=== PATIENT | female | born 1990 | race Caucasian/White ===

== ENCOUNTER 2022-02-08 11:18 | Outpatient (CLI) | payer OTHER, SELFPAY ==
--- NOTE | 2022-02-08 11:15 | US_ITS ---
WS: [id number] RENAL ULTRASOUND HISTORY: Kidney Stone COMPARISON: None available. TECHNIQUE: 2-D and color Doppler imaging of the kidney submitted. Right kidney: 11.7 cm x 5.7 cm x 7.3 cm. Normal size kidney. Moderate hydronephrosis. Renal pelvis and the proximal ureter are dilated up to 2 .4 cm. No calcifications remain within the renal pelvis. Left kidney: 12.4 cm x 4.8 cm x 4.9 cm. Normal echogenicity with no hydronephrosis or mass. Aorta: Normal. Urinary Bladder: Normal distention. US/US renal BI* [id number] IMPRESSION: 1. Moderate RIGHT hydronephrosis and proximal hydroureter. May be due to a gra vid uterus or obstructing calcification. 2. Negative LEFT kidney. 3. Negative urinary bladder.
== END 2022-02-08 11:19 | disposition home or self-care (01) ==
LOC: RAD 11:19
PROVIDERS: PCP Family Medicine; Visit Provider Urology
DX: Z87.442 Personal history of urinary calculi (principal); N13.30 Unspecified hydronephrosis; N13.4 Hydroureter; R82.81 Pyuria
CPT/HCPCS: 76770; 81003; 87077; 87086; 87186

== ENCOUNTER 2022-02-09 07:00 | Inpatient (IN) | payer OTHER, SELFPAY ==
[2022-02-08] VITALS (9 sets, daily range): BP systolic 111–127; BP diastolic 56–72; PULSE 120–133; RESP 20; TEMP 36.6–37.8; BMI 31.9
--- NOTE | 2022-02-08 14:35 | MR_ITS ---
WS: [id number] MRI ABDOMEN without CONTRAST. COMPARISON: 02/08/2022 renal ultrasound Multiplanar, multisequence imaging is performed without contrast. Moderate RIGHT hydronephrosis is identified. The RIGHT ureter is dilated. Ureter is mildly dilated an d fluid-filled throughout its course but tapers distally. There is mild change in caliber at the pelv ic brim. No obstructing calcification is identified. The distal ureter is distended with urine but no t significantly enlarged. No definite filling defect is identified. No significant perinephric strand ing around the ureter. There is a small amount of fluid around the RIGHT kidney. The LEFT ureter is not dilated. Very mild fluid prominence in the LEFT pelvis but there is no overt o bstruction. No hydronephrosis noted on the recent ultrasound. Gravid uterus. MR/MR abdomen wo con [id number] IMPRESSION: 1. Moderate RIGHT hydroureteronephrosis. 2. RIGHT ureter is fluid-filled but tapers distally. No ureteral stone is iden tified.
[2022-02-08 15:26] LABS: Basophils % 0.2 %; Eosinophils % 0.1 %; Hematocrit 36.5 % (37.0-47.0); Hemoglobin 12.2 g/dL (11.5-15.3); Lymphocytes # 0.8 10^3/uL (0.8-4.8); Lymphocytes % 4.7 %; Mean Corpuscular HGB Conc 33.4 g/dL (30.0-36.0); Mean Corpuscular Hemoglobin 31.5 pg (28.0-34.0); Mean Corpuscular Volume 94.3 fl (81-99); Mean Platelet Volume 11.7 fL (7.4-10.4); Monocytes # 0.7 10^3/uL (0.2-0.9); Monocytes % 4.3 %; Neutrophils # 14.82 10^3/uL (1.8-7.7); Nucleated Red Blood Cells % 0 %; Platelet Count 227 10^3/cmm (130-400); Red Blood Count 3.87 10^6/uL (4.1-5.3); Red Cell Distribution Width 13.5 % (12.1-15.1); White Blood Count 16.5 10^3/uL (4.0-10.0)
[2022-02-08 15:38] LABS: Alanine Aminotransferase 8 U/L (0-33); Albumin Level 3.4 g/dL (3.5-5.2); Alkaline Phosphatase 78 U/L (35-105); Anion Gap 16.6 (5-19); Aspartate Amino Transferase 12 U/L (0-32); Blood Urea Nitrogen 8 mg/dL (6-20); Calcium 8.9 mg/dL (8.5-10.5); Carbon Dioxide 20 mmol/L (22-29); Chloride 104 mmol/L (98-107); Globulin 3.1 g/dL (1.3-4.6); Glomerular Filtration Rate 117.4 mL/min (90-130); Glucose 106 mg/dL (65-115); Osmolality Calculated 283 mOsm/kg (285-295); Potassium 3.6 mmol/L (3.5-5.1); Sodium 137 mmol/L (136-145); Total Bilirubin 0.3 mg/dL (0.15-1.2); Total Protein 6.5 g/dL (6.6-8.7)
[2022-02-08] MEDS: dextrose 5%-ns + KCl 20 20 MEQ/1,000 ML BAG 150 MEQ IV (16:24)
[2022-02-08] MEDS: cefTRIAXone 1,000 MG in sodium chloride 0.9% (plus) 50 ML 100 MG IV (16:25)
[2022-02-08] MEDS: acetaminophen 500 mg Tablet PO ×2 (16:40→19:08)
--- NOTE | 2022-02-08 17:50 | PM.SDS ---
Short Stay Summary Providers Date of Admit/Discharge: 02/10/22 Attending Provider: Supa Linton MD Primary Care Provider: Supa Linton MD Chief Complaint: Right flank pain HPI History of Present Illness Selam Ralph is a 31 year old 2 para 1-0-0-1 female at 23 weeks estimated gestational age presenting with right flank pain has been occurring for the last 24 hours. She was evaluated by Dr. Celestin and found to have pyuria and right flank tenderness. An ultrasound demonstrated right hydronephrosis. She was having chills and Dr. Celestin contacted me to consider admission. Her has otherwise been unremarkable. Her labs been within normal limits. There have been no concerns. Review of Systems General: Reports: 10 or more systems reviewed and unremarkable except in HPI and below Const: Reports: chills and fatigue; Denies: fever(s) Eyes: Denies: change in vision Card: Denies: chest pain Musc: Reports: back pain and other (Generalized body aches) Ulises/Lymph: Denies: easy bruising Home Meds/Allergies Home Medications and Allergies Home Medications Medication Instructions Recorded Confirmed Type prenat.vits,trell,bde-pvlk-wlrct 1 tab PO DAILY 02/08/22 02/08/22 History Allergies Allergy/AdvReac Type Severity Reaction Status Date / Time cefaclor [From [facility]] Allergy Mild Unknown Verified 02/08/22 13:10 PFSH Acute PFSH: Surgical History (Updated 02/10/22 @ 05:47 by Arya Celestin MD) History of tonsillectomy and adenoidectomy History of wisdom tooth extraction Family History Other Hypertension Social History Smoking and tobacco status: never smoked Female Reproductive History: : 2 Vitals/I&O/Wt Last Vital Signs Temp 97.9 F 02/08/22 16:15 Pulse 125 H 02/08/22 17:13 Resp 20 H 02/08/22 16:15 BP 114/64 02/08/22 17:13 Weight last 48 hrs Weight 198 lb Physical Exam Const: COMMON NORMALS: patient oriented x3 and alert HENMT: COMMON NORMALS: moist oral mucous membranes HEAD & SCALP: normal to inspection Chest: COMMONS NORMALS: normal inspection of the chest Resp: COMMON NORMALS: clear to auscultation bilaterally AUSCULTATION: clear to auscultation bilaterally Cardio: COMMON NORMALS: regular rate and regular rhythm RATE: regular rate RHYTHM: regular rhythm GI: INSPECTION: Yes normal to inspection and Yes other (Gravid) Back/Pelvis: OTHER: Right CVA tenderness. Extremity: COMMON NORMALS: normal to inspection GENERAL: Yes edema (Trace) Neuro: COMMON NORMALS: patient oriented x3, moves all extremities and no sensory deficits noted SENSORIUM/ORIENTATION: Yes alert Psych: COMMON NORMALS: mental status grossly normal Skin: COMMON NORMALS: no rashes or lesions noted GENERAL SKIN EXAM: no rashes or lesions noted SSS Data Data Completed and Pending: Completed Studies During Hospitalization Category Date Time Status MR abdomen wo con [id number] Routine MRI 02/08/22 14:35 Completed Diagnoses at Discharge Discharge Diagnosis (1) Pyuria: Details from hospital stay: Patient has been placed on Rocephin and IV fluids. I anticipate we will continue with Rocephin unless we see her spiking fevers again today overseer condition worsening. In which case I may proceed to amp and gent. Otherwise we will wait for the culture to determine our next choice of antibiotics. Initially I thought she would have a short stay in the hospital, but looks like she will be changing to a full admission. Status: Acute (2) Hydronephrosis, right: Details from hospital stay: We appreciate Dr. Celestin's care. Depending on how she does, she may require a stent. Status: Acute (3) Flank pain: Status: Acute Discharge Plan Discharge Condition: Stable Prescriptions: No Action prenat.vits,trell,[id number] Tablet 1 tab PO DAILY Attestations Medical Necessity Statement*: Due to the patient's diagnosis of hydronephrosis, cystitis, and , we will have to monitor her carefully. I anticipate she will require a 1-2 night stay in the hospital depending on how she responds to treatment Time Spent in Patient Care*: greater than 30 min Quality Metrics Clinical Quality Measures: [ No reported AMI, CVA or VTE this stay] Coding Level of Care Code Acute Dog Pound Attendant for [facility] Fwd Exam Comprehensive Diagnoses Pyuria R82.81 Hydronephrosis, right N13.30 Flank pain R10.9 A&P Assessment and plan (1) Pyuria: Status: Acute (2) Hydronephrosis, right: Status: Acute (3) Flank pain: Status: Acute
--- NOTE | 2022-02-08 19:15 | PM.MISC ---
Miscellaneous Note Purpose of Documentation: Urology follow-up: SEE CONSULT NOTE WHICH WAS MY CLINIC NOTE FROM EARLIER TODAY WHICH LED TO THE DIRECT ADMISSION TODAY Pain better controlled tonight. No evidence of septic progression MRI confirmed significant right hydronephrosis and hydroureter down to the pelvic vessel crossing. No stone was identified. Findings more consistent with hydronephrosis of . Recommendations: 1. In the absence of infectious progression would continue palliative care primarily with pain control and antibiotic 2. If there is either progression of infectious concerns or refractory pain that cannot be adequately controlled conservatively would recommend stent placement I reviewed all the above with the patient and her
[2022-02-09] VITALS (20 sets, daily range): BP systolic 94–116; BP diastolic 51–68; PULSE 103–171; RESP 16–20; TEMP 36.6–37.7; O2SAT 96–98
[2022-02-09] MEDS: acetaminophen 500 mg Tablet PO ×5 (00:04→23:34)
[2022-02-09] MEDS: dextrose 5%-ns + KCl 20 20 MEQ/1,000 ML BAG 150 MEQ IV ×4 (00:05→22:50)
--- NOTE | 2022-02-09 02:12 | PC.NURSE ---
RN at bedside plus ox states HR in 170s. This RN and [id number] palpated radial plus and noted it to be 120s.
[2022-02-09] MEDS: cefTRIAXone 1,000 MG in sodium chloride 0.9% (plus) 50 ML 100 MG IV (05:09)
[2022-02-09 05:27] LABS: Basophils % 0.2 %; Eosinophils % 0.1 %; Hemoglobin 10.6 g/dL (11.5-15.3); Lymphocytes # 1.1 10^3/uL (0.8-4.8); Mean Corpuscular HGB Conc 33.1 g/dL (30.0-36.0); Mean Corpuscular Hemoglobin 31.4 pg (28.0-34.0); Mean Corpuscular Volume 94.7 fl (81-99); Mean Platelet Volume 11.3 fL (7.4-10.4); Monocytes # 1.2 10^3/uL (0.2-0.9); Monocytes % 6.6 %; Neutrophils # 15.93 10^3/uL (1.8-7.7); Neutrophils % 86.2 %; Nucleated Red Blood Cells % 0 %; Platelet Count 202 10^3/cmm (130-400); Red Blood Count 3.38 10^6/uL (4.1-5.3); Red Cell Distribution Width 13.3 % (12.1-15.1); White Blood Count 18.5 10^3/uL (4.0-10.0)
--- NOTE | 2022-02-09 06:18 | P.PN_ITS ---
Subjective Subjective: Urology follow-up White count was elevated at 16.5 on admission yesterday. 18.5 this morning. Tachycardic. T-max was 100.1 at 8 PM last night. Afebrile this morning PM follow up: Not feeling great. Some chills but no spike in temps. No contractions. No dysuria. Cultures pending. Reviewed stent tomorrow if not seeing a trend of improvement. Good conversation. Medications: Reviewed: Yes Vitals/I&O/Wt Last Vital Signs Temp 98.2 F 02/09/22 02:26 Pulse 104 H 02/09/22 02:22 Resp 20 H 02/08/22 16:15 BP 99/55 02/09/22 02:02 Pulse Ox 97 02/09/22 02:22 O2 Del Method 02/08/22 20:01 02/08/22 02/08/22 02/09/22 14:59 22:59 06:59 Intake Total 1000 / 1000 Balance 1000 / 1000 Weight last 48 hrs Weight 198 lb Physical Exam Narrative: alert, oriented appropriate NAD No labored respiration Data : 02/10/22 05:08 02/08/22 14:45 A&P Assessment and plan (1) Hydronephrosis, right: No stone seen on MRI (2) Flank pain: (3) Pyuria: (4) Cystitis: initially asymptomatic Attestations Medical Necessity Statement*: Pain control, close monitoring with potentially high risk situation with UTI and obstruction Coding Level of Care Code Acute Prototype Model Maker for [facility] Diagnoses Hydronephrosis, right N13.30 Flank pain R10.9 Pyuria R82.81 Cystitis N30.90 Time Spent (min) 30
--- NOTE | 2022-02-09 22:55 | PC.NURSE ---
Discussed with patient new orders from Dr. Linton for Hydrocodone 5-325 q4h PRN for pain. Medication offered to patient, patient states she can wait for Tylenol at this time.
[2022-02-10] VITALS (10 sets, daily range): BP systolic 89–104; BP diastolic 51–63; PULSE 99–111; TEMP 36.7–37.1; O2SAT 97
[2022-02-10] MEDS: cefTRIAXone 1,000 MG in sodium chloride 0.9% (plus) 50 ML 100 MG IV (05:05)
[2022-02-10 05:29] LABS: Basophils % 0.1 %; Eosinophils # 0.1 10^3/uL (0.0-0.8); Eosinophils % 0.4 %; Hematocrit 30.8 % (37.0-47.0); Lymphocytes # 1.3 10^3/uL (0.8-4.8); Lymphocytes % 9.2 %; Mean Corpuscular HGB Conc 32.5 g/dL (30.0-36.0); Mean Corpuscular Hemoglobin 31.3 pg (28.0-34.0); Mean Corpuscular Volume 96.3 fl (81-99); Mean Platelet Volume 11.3 fL (7.4-10.4); Monocytes # 1.1 10^3/uL (0.2-0.9); Monocytes % 7.8 %; Neutrophils # 11.25 10^3/uL (1.8-7.7); Neutrophils % 81.8 %; Nucleated Red Blood Cells % 0 %; Platelet Count 190 10^3/cmm (130-400); Red Cell Distribution Width 13.5 % (12.1-15.1); White Blood Count 13.8 10^3/uL (4.0-10.0)
--- NOTE | 2022-02-10 06:00 | PM.PN ---
Subjective Subjective: Urology follow-up: Feels much better this morning. Still having intermittent renal colicky type pains but manageable. Less of the malaise feeling that she had with fever spikes previously. Overall more optimistic. No baby issues. Cultures growing gram-negative bacteria. Sensitivities pending Good discussion regarding stent versus no stent. Based on the improvement in symptoms we have elected to hold on stent for now and hopefully just base that decision on pain and not infectious concerns. More optimistic. Vitals/I&O/Wt Last Vital Signs Temp 97.8 F 02/11/22 05:05 Pulse 85 02/11/22 05:04 Resp 16 02/09/22 22:27 BP 90/51 02/11/22 05:04 Pulse Ox 95 02/11/22 05:02 O2 Del Method 02/09/22 08:00 02/10/22 02/10/22 02/11/22 14:59 22:59 06:59 Intake Total 1050 / 1050 1000 / 2050 1000 / 3050 Balance 1050 / 1050 1000 / 2050 1000 / 3050 Physical Exam Narrative: alert, oriented appropriate Looks like she feels better. NAD No labored respiration Data : 02/10/22 05:08 02/08/22 14:45 A&P Assessment and plan (1) Hydronephrosis, right: No stone seen on MRI (2) Flank pain: Persistent but overall not as bad and seems to be tolerable. (3) Pyuria: (4) Cystitis: initially asymptomatic. Later developed low-grade temperatures, chills. Clinically improved over yesterday. Cultures pending. Plan 1. Elected to continue antibiotic therapy and pain medication rather than stenting given the clinical improvement today. 2. Continue inpatient care with IV antibiotics. Adjust per cultures. If continues this clinical improvement from an infectious perspective we will base a decision on stenting primarily on pain. At this point she thinks that the pain as an independent variable is manageable and she would like to forego a stent at this point anyway. Attestations Medical Necessity Statement*: IV antibiotics. See above Coding Level of Care Code Acute Cartridge Loader for [facility] Diagnoses Hydronephrosis, right N13.30 Flank pain R10.9 Pyuria R82.81 Cystitis N30.90
[2022-02-10] MEDS: dextrose 5%-ns + KCl 20 20 MEQ/1,000 ML BAG 150 MEQ IV ×3 (06:18→20:53)
[2022-02-10 06:43] LABS: Bilirubin Urine Neg (Negative); Blood Urine 2+ (Negative); Glucose Urine UA Norm (Normal); Ketones Urine Negative (Negative); Leukocyte Esterase Urine Negative (Negative); Nitrate Urine Negative (Negative); Protein Urine Neg (Negative); Urine Appearance Clear (CLEAR); Urine Color Yellow (Yellow); Urobilinogen Urine Norm (Negative); pH Urine 6 (5-7)
[2022-02-10 06:48] LABS: Add Urine Culture? No; Bacteria Urine 3+ /hpf; Squamous Epithelial Cell Urine 15-25 /hpf (0-5)
--- NOTE | 2022-02-10 07:28 | P.PN_ITS ---
Subjective Subjective: The patient has made some progress overall. Her pulse is improving, her temp was to 99.5 last night while on Tylenol. She continued to have significant right flank pain last night. She rated 8 out of 10. That is improved this morning. Her urine has appeared clear. Whenever her Tylenol wears off she says she just generally feels bad. Vitals/I&O/Wt Last Vital Signs Temp 98.0 F 02/10/22 05:07 Pulse 101 H 02/10/22 05:08 Resp 16 02/09/22 22:27 BP 98/56 02/10/22 05:08 Pulse Ox 98 02/09/22 22:17 O2 Del Method 02/09/22 08:00 02/09/22 02/10/22 02/10/22 22:59 06:59 14:59 Intake Total 1999 / 1999 1000 / 3000 Balance 1999 1000 / 3000 Weight last 48 hrs Weight 198 lb Physical Exam Narrative: The patient is alert. She appears comfortable. Her heart has a regular rate and rhythm with no murmurs appreciated. Lungs are clear to auscultation bilaterally. She continues to have right flank pain. Data : 02/10/22 05:08 02/08/22 14:45 A&P Assessment and plan (1) Flank pain: (2) Hydronephrosis, right: I appreciate the conscientious care of Dr. Celestin. I will confer with him about the risk/benefits of a stent placement. She appears to have made some progress clinically, but it is marginal. (3) Cystitis: Continue Rocephin until urine cultures are back. We will give it antibiotics if needed after cultures have returned. Hopefully today Attestations Medical Necessity Statement*: The patient has not improved as quickly as I had hoped. She continues to have significant symptoms when the Tylenol wears off. Her urine still demonstrates 3+ bacteria. I will consult with the Dr. Celestin but it is likely she will need to be in the hospital for another night. Coding Level of Care Code Acute Armorer Technician for [facility] Diagnoses Flank pain R10.9 Hydronephrosis, right N13.30 Cystitis N30.90
[2022-02-11 03:28] VITALS: TEMP 36.4
[2022-02-11] MEDS: dextrose 5%-ns + KCl 20 20 MEQ/1,000 ML BAG 150 MEQ IV (03:57)
[2022-02-11] MEDS: cefTRIAXone 1,000 MG in sodium chloride 0.9% (plus) 50 ML 50 MG IV (05:00)
[2022-02-11 05:02] VITALS: PULSE 100; O2SAT 95
[2022-02-11 05:04] VITALS: BP 90/51; PULSE 85
[2022-02-11 05:05] VITALS: TEMP 36.6
--- NOTE | 2022-02-11 05:40 | P.PN_ITS ---
Subjective Subjective: Urology follow-up: No temperature spikes over the last 24 hours. Vitals/I&O/Wt Last Vital Signs Temp 97.8 F 02/11/22 05:05 Pulse 85 02/11/22 05:04 Resp 16 02/09/22 22:27 BP 90/51 02/11/22 05:04 Pulse Ox 95 02/11/22 05:02 O2 Del Method 02/09/22 08:00 02/10/22 02/10/22 02/11/22 14:59 22:59 06:59 Intake Total 1050 / 1050 1000 / 2050 1000 / 3050 Balance 1050 / 1050 1000 / 2050 1000 / 3050 Data : 02/10/22 05:08 02/08/22 14:45 Coding Level of Care Code Acute Research Anthropologist for [facility]
--- NOTE | 2022-02-11 06:40 | PM.OBGYDC ---
Discharge Providers SEWING MACHINE ASSEMBLER Date of Admission: 02/09/22 07:00 Date of Discharge: 02/11/22 Attending Provider at Admission: Supa Linton MD Attending Provider at Discharge: Supa Linton MD Primary Care Provider: Supa Linton MD Diagnoses at Discharge Discharge Diagnosis (1) Hydronephrosis, right: Status: Acute (2) Flank pain: Status: Acute (3) Pyuria: Status: Acute (4) Cystitis: Status: Acute Reason for Visit Reason for Visit: Right flank pain Hospital Course Hospital Course The patient presented to the hospital due to hydronephrosis and a urinary tract infection. She was placed on Rocephin and IV fluids. She had chills, and constitutional ill bed. She had multiple mild elevations of her temperature despite being on Tylenol 22/11 for her first few days of hospital stay. We are considering having a stent placed, but her condition gradually improved. Her last 24 hours, there were no fevers. She did not require Tylenol. She was eating and drinking well without difficulty. Physical Exam Narrative: The patient is alert. She appears comfortable. Her heart has a regular rate and rhythm with no murmurs appreciated. Lungs are clear to auscultation bilaterally. She continues to have tenderness in the right CVA area and in the right mid axillary line just below her ribs Her fundus is at the umbilicus. Discharge Data Studies Completed and Pending Completed Studies During Hospitalization Category Date Time Status MR abdomen wo con [id number] Routine MRI 02/08/22 14:35 Completed Radiology Impressions Abdomen MRI 02/08/22 14:35 IMPRESSION: 1. Moderate RIGHT hydroureteronephrosis. 2. RIGHT ureter is fluid-filled but tapers distally. No ureteral stone is identified. Laboratory Results WBC 13.8 10^3/uL (4.0-10.0) H 02/10/22 05:08 RBC 3.20 10^6/uL (4.1-5.3) L 02/10/22 05:08 Hgb 10.0 g/dL (11.5-15.3) L 02/10/22 05:08 Hct 30.8 % (37.0-47.0) L 02/10/22 05:08 MCV 96.3 fl (81-99) 02/10/22 05:08 MCH 31.3 pg (28.0-34.0) 02/10/22 05:08 MCHC 32.5 g/dL (30.0-36.0) 02/10/22 05:08 RDW 13.5 % (12.1-15.1) 02/10/22 05:08 Plt Count 190 10^3/cmm (130-400) 02/10/22 05:08 MPV 11.3 fL (7.4-10.4) H 02/10/22 05:08 Neut % (Auto) 81.8 % 02/10/22 05:08 Lymph % (Auto) 9.2 % 02/10/22 05:08 [place] % (Auto) 7.8 % 02/10/22 05:08 Eos % (Auto) 0.4 % 02/10/22 05:08 Baso % (Auto) 0.1 % 02/10/22 05:08 Neut # (Auto) 11.25 10^3/uL (1.8-7.7) H 02/10/22 05:08 Lymph # (Auto) 1.3 10^3/uL (0.8-4.8) 02/10/22 05:08 [place] # (Auto) 1.1 10^3/uL (0.2-0.9) H 02/10/22 05:08 Eos # (Auto) 0.1 10^3/uL (0.0-0.8) 02/10/22 05:08 Baso # (Auto) 0.0 10^3/uL (0.0-0.1) 02/10/22 05:08 Nucleated RBC % (auto) 0 % 02/10/22 05:08 Nucleated RBCs # 0.0 /100WBC 02/10/22 05:08 Sodium 137 mmol/L (136-145) 02/08/22 14:45 Potassium 3.6 mmol/L (3.5-5.1) 02/08/22 14:45 Chloride 104 mmol/L (98-107) 02/08/22 14:45 Carbon Dioxide 20 mmol/L (22-29) L 02/08/22 14:45 Anion Gap 16.6 (5-19) 02/08/22 14:45 BUN 8 mg/dL (6-20) 02/08/22 14:45 Creatinine 0.6 mg/dL (0.5-0.9) 02/08/22 14:45 GFR Calculation 117.4 mL/min (90-130) 02/08/22 14:45 Glucose 106 mg/dL (65-115) 02/08/22 14:45 Calculated Osmolality 283 mOsm/kg (285-295) L 02/08/22 14:45 Calcium 8.9 mg/dL (8.5-10.5) 02/08/22 14:45 Total Bilirubin 0.3 mg/dL (0.15-1.2) 02/08/22 14:45 AST 12 U/L (0-32) 02/08/22 14:45 ALT 8 U/L (0-33) 02/08/22 14:45 Alkaline Phosphatase 78 U/L (35-105) 02/08/22 14:45 Total Protein 6.5 g/dL (6.6-8.7) L 02/08/22 14:45 Albumin 3.4 g/dL (3.5-5.2) L 02/08/22 14:45 Globulin 3.1 g/dL (1.3-4.6) 02/08/22 14:45 Urine Color Yellow (Yellow) 02/10/22 06:21 Urine Appearance Clear (CLEAR) 02/10/22 06:21 Urine pH 6 (5-7) 02/10/22 06:21 Ur Specific [place] 1.010 (1.005-1.030) 02/10/22 06:21 Urine Protein Neg (Negative) 02/10/22 06:21 Urine Glucose (UA) Norm (Normal) 02/10/22 06:21 Urine Ketones Negative (Negative) 02/10/22 06:21 Urine Blood 2+ (Negative) H 02/10/22 06:21 Urine Nitrate Negative (Negative) 02/10/22 06:21 Urine Bilirubin Neg (Negative) 02/10/22 06:21 Urine Urobilinogen Norm mg/dL (Negative) 02/10/22 06:21 Ur Leukocyte Esterase Negative (Negative) 02/10/22 06:21 Urine RBC 5-10 /hpf (0-2) H 02/10/22 06:21 Urine WBC 5-10 /hpf (0-5) H 02/10/22 06:21 Ur Squamous Epith Cells 15-25 /hpf (0-5) H 02/10/22 06:21 Amorphous Sediment Not Reportable 02/10/22 06:21 Urine Bacteria 3+ /hpf (NONE) H 02/10/22 06:21 Vitals Last Vital Signs Temp 97.8 F 02/11/22 05:05 Pulse 85 02/11/22 05:04 Resp 16 02/09/22 22:27 BP 90/51 02/11/22 05:04 Pulse Ox 95 02/11/22 05:02 O2 Del Method 02/09/22 08:00 Discharge Plan Discharge Patient Disposition: Home Condition: Stable Prescriptions: New cephalexin 500 mg capsule 500 mg PO TID 7 Days Qty: 21 0RF Continued prenat.vits,trell,egj-iafo-rfnlb Tablet 1 tab PO DAILY Discharge Orders: Discharge Order (Routine); Ordered 02/11/22 Ordered By: Supa Linton Referrals: Supa Linton MD [Primary Care Provider] - 4-7 days Discharge Diet: Usual diet Discharge Activity: Limit activity as instructed Activity Restrictions/Additional Instructions: No work until Tuesday. Discharge Attestations SEWING MACHINE ASSEMBLER Time Spent in Discharge Care*: less than 30 min Coding Level of Care Code Acute Detective Bowling Alley for [facility] Diagnoses Hydronephrosis, right N13.30 Flank pain R10.9 Pyuria R82.81 Cystitis N30.90
[2022-02-11 07:09] VITALS: BP 107/65; PULSE 96
[2022-02-11 09:20] VITALS: BP 107/65; PULSE 96; RESP 16; TEMP 36.4
== END 2022-02-11 09:20 | disposition home or self-care (01) | DRG 832 ==
LOC: OPOB 07:49 → OBGYN 07:49
PROVIDERS: Urology; Admitting Provider Family Medicine; PCP Family Medicine; Visit Provider Family Medicine
DX: O23.12 Infections of bladder in pregnancy, second trimester (principal); N13.30 Unspecified hydronephrosis; O99.891 Other specified diseases and conditions complicating pregnancy; Z3A.23 23 weeks gestation of pregnancy
CPT/HCPCS: 12345; 36415; 59025; 74181; 80053; 81001; 85025; 99211; J0696

== ENCOUNTER 2022-09-06 06:14 | Outpatient (CLI) | payer OTHER, SELFPAY ==
--- NOTE | 2022-09-06 | US_ITS ---
WS: [id number] EARLY OBSTETRICAL ULTRASOUND (<14 WEEKS). HISTORY: Dating. COMPARISON: None available. Single intrauterine gestational sac is identified. Cardiac activity at 153 BPM. [place]-rump length shannon sures 1.5 cm which corresponds to a gestation of 7w6d. Normal-appearing yolk sac and amnion demonstra robyn. No subchorionic hemorrhage. No free fluid. RIGHT ovarian corpus luteal cyst measuring 2.3 x 2.3 x 2.9 cm. US/US OB <= 14 weeks fetus [id number] IMPRESSION: 1. Single intrauterine gestation of 7 weeks 6 days with an EDC of 04/19/2023. 2. Normal cardiac activity.
== END 2022-09-06 06:15 | disposition home or self-care (01) ==
LOC: RAD 06:19
PROVIDERS: PCP Family Medicine
DX: Z34.81 Encounter for supervision of other normal pregnancy, first trimester (principal); Z3A.01 Less than 8 weeks gestation of pregnancy
CPT/HCPCS: 76801

== ENCOUNTER 2022-12-21 08:07 | Outpatient (CLI) | payer OTHER, SELFPAY ==
--- NOTE | 2022-12-21 08:20 | US_ITS ---
WS: [email or web address] ULTRASOUND OB COMPLETE TECHNIQUE: Complete ultrasound. CLINICAL INFORMATION: 2ND TRIMESTER COMPARISON: None. FINDINGS: Cervix is long and closed measuring 6.7 cm Single interuterine gestation is identified with breech presentation. Placenta is posterior and very low-lying approximately 1.0 cm from the cervical os. Placenta grade 0. Normal amniotic fluid volume. cardiac activity: 141 BPM. JAVON 13.4 cm AGA: 23w3d HANNAH by ultrasound: 04/16/2023 Estimated weight: 594 g; 1 pound 5 ounces BDP: 5.7 cm = 23w3d HC: 21.6 cm = 23w5d AC: 18.7 cm = 23w3d FEMUR LENGTH: 4.1 cm = 23w2d Anatomic survey: Anatomic survey is normal. Normal stomach. Kidneys and bladder are normal. Normal 3 vessel cord. Norm al 3 vessel cord insertion. Normal 4 chamber heart and outflow tracts. Normal 3 VV. Normal spine. Int racranial contents are normal. Normal posterior fossa and cisterna magna. IMPRESSION: 1. Single intrauterine with visualized cardiac activity. AGA 23w3d with HANNAH 04/16/2023. 2. Placenta is posterior and very low-lying. Recommend third trimester follow-up. 3. presentation is breech. Recommend third trimester follow-up. 4. anatomic survey is normal. 5. Normal amniotic fluid volume.
== END 2022-12-21 08:08 | disposition home or self-care (01) ==
PROVIDERS: PCP Family Medicine; Visit Provider Family Medicine
DX: Z34.82 Encounter for supervision of other normal pregnancy, second trimester (principal)
CPT/HCPCS: 76805

== ENCOUNTER 2023-02-11 07:34 | Outpatient (CLI) | payer OTHER, SELFPAY ==
--- NOTE | 2023-02-11 07:40 | US_ITS ---
WS: [id number] LIMITED OBSTETRICAL ULTRASOUND HISTORY: UTERINE SIZE FOR DATE DISCREPANCY COMPARISON: 12/21/2022, 09/06/2022 Presentation: Vertex. Cervix: Closed and normal length. Placenta: Posterior, no previa or abruption. The placenta is no longer low-lying. Grade: 1 HEART: FHR of 138 BPM. measurements: BPD = 8.0 cm = 32w1d; greater than the 98% HC = 29.5 cm = 32w4d; 98% AC = 27.5 cm = 31w4d; 97% FL = 6.1 cm = 31w5d; 95% Visually the JAVON is normal Large vertical pocket of amniotic fluid measures at least 4.9 cm in diameter. EFW: 1835 g; greater than 90% AGA by ultrasound: 31w5d HANNAH by ultrasound: 04/10/2023 Measurements are internally concordant but the fetus is measuring large for gestational age. IMPRESSION: 1. Single intrauterine gestation of 31 weeks 5 days with an EDC of 04/10/2023. 2. Estimated weight grade than the 90th percentile for age. 3. Large for gestational age fetus. Biometry is diffusely above the 90th percentile. BPD is greater than 98th percentile for age. 4. Posterior placenta, no previa. Placenta is no longer low-lying.
== END 2023-02-11 07:35 | disposition home or self-care (01) ==
LOC: RAD 07:35
PROVIDERS: PCP Family Medicine; Visit Provider Family Medicine
DX: O26.849 Uterine size-date discrepancy, unspecified trimester (principal); Z3A.31 31 weeks gestation of pregnancy
CPT/HCPCS: 76816

== ENCOUNTER 2023-04-09 03:28 | Inpatient (IN) | payer OTHER, SELFPAY ==
[2023-04-09] VITALS (99 sets, daily range): BP systolic 85–160; BP diastolic 48–78; PULSE 64–145; RESP 16; TEMP 36.7–37.3; O2SAT 85–100; BMI 33.4
--- NOTE | 2023-04-09 02:13 | PM.OPHPUD ---
Labor & Delivery H&P Update Date of Procedure: April 09, 2023 Date H&P Performed: 04/06/23 Changes to previous documentation: On admission cervix was 7 cm dilated, with rupture membranes and active labor Admission Diagnosis: 32-year-old 3 para 2-0-0-2 at 38 weeks estimated gestational age. Planned procedure: Spontaneous vaginal delivery Other information: Selam's has been relatively unremarkable. At 1 point her baby was breech position, but is now vertex. Her baby has also been borderline macrosomic per ultrasound. Otherwise her has been unremarkable. She has been getting most of her care from Merari Schrader the media marketing coordinator. She was planning to have a home delivery. Unfortunately, she began having significant pain around 7 to 8 cm and very little progress. As result she contacted the OB floor and is coming in for an epidural and further evaluation. Her labs have been relatively unremarkable. Her blood type was O+. Her antibody screen was negative. Her glucose screen was negative. Her hepatitis B was negative. RPR was negative. She is GBS negative. She is rubella nonimmune. Related Problem List Diagnoses (1) 38 weeks gestation of : (2) Active labor: A&P Assessment and plan (1) 38 weeks gestation of : The patient is requesting epidural. After the epidural was performed we will reassess her situation. I am hopeful that once her pain improves, and she relaxes, we can make progress towards delivery vaginally. Status: Acute (2) Active labor: Status: Acute
--- NOTE | 2023-04-09 02:25 | P.ANESASSM_ITS ---
Pre-Anesthetic Assessment Height/Weight: Height 1.68 m Pulse BP Pulse Ox 111 H 119/72 93 04/09/23 02:23 04/09/23 02:22 04/09/23 02:23 Preop Diagnosis: Labor pain KEILY Was Beta Jp taken within 24 hours: N/A Was Clonidine taken within 24 hours: N/A Social No alcohol and No tobacco Exam alert, oriented x 3, clear to auscultation bilaterally and regular rate & rhythm Airway Submandibular: within normal limits Cervical ROM: within normal limits Mallampati: Class II Dentition: full History/ROS No significant history except as noted and No significant complaints CV/HEM None reported None reported Hepatic None reported GI None reported Metabolic None reported Musc/skel None reported Neuropsych None reported Anesthetic Plan ASA status: 2 Anesthesia: Anesthesia Evaluation and Regional (specify below) (KEILY) Risk of > 500 ml blood loss (7ml/kg in children): No Medications/Allergies Home Medications Medication Instructions Recorded Confirmed Last Taken Type prenat.vits,trell,neo-mefm-ujgvm 1 tab PO DAILY 02/08/22 04/21/22 02/08/22 06:15 History mupirocin 2 % topical ointment 1 applic topical BID #22 grams 04/02/22 04/21/22 Unknown Rx Allergies Allergy/AdvReac Type Severity Reaction Status Date / Time No Known Drug Allergies Allergy Unknown Unknown Verified 04/21/22 09:18 [facility] Anesthesia Surgical History History of tonsillectomy and adenoidectomy History of wisdom tooth extraction Family History Other Hypertension Social History Smoking and tobacco/nicotine status: never used tobacco/nicotine Data Anesthesia Cardiac Studies: No Data to Display
--- NOTE | 2023-04-09 02:28 | ANES.PROC ---
Anesthesia Procedures Procedure/Date: 04/09/23 Epidural: Time Out Performed: Yes Consents Signed: Procedure Consent Consent: requested by attending/covering physician and from patient Lumbar Level: L3-L4 Epidural position: sitting Epidural procedure: sterile prep of area, 1% lidocaine to numb the area, 18 g needle, neg for paresthesia, test dose given, 1.5% xylocaine 1:200k epi (5cc), 0.2% Ropivacaine bolus ml (4cc and Fentanyl 100 mcg), placed PCEA, no systemic response, sterile dressing applied, L.U.D. no apparent complications and 0.2% Ropiavacaine @ mls/hr (10cc/hour) Additional Comments: ART at 6cm. Pt tolerated well
[2023-04-09] MEDS: dextrose 5%-lactated ringers 1,000 ML 999 ML IV (03:35)
[2023-04-09 03:42] LABS: Basophils % 0.2 %; Lymphocytes # 0.9 10^3/uL (0.8-4.8); Lymphocytes % 3.6 %; Mean Corpuscular HGB Conc 32.4 g/dL (30-55); Mean Corpuscular Hemoglobin 28.5 pg (27-33); Mean Corpuscular Volume 88.1 fl (85-98); Mean Platelet Volume 11.5 fL (7.4-10.4); Monocytes # 0.7 10^3/uL (0.2-0.9); Monocytes % 2.9 %; Neutrophils # 23.06 10^3/uL (1.8-7.7); Neutrophils % 92.3 %; Nucleated Red Blood Cells % 0 %; Platelet Count 224 10^3/cmm (157-399); Red Blood Count 3.86 10^6/uL (3.85-5.65); Red Cell Distribution Width 13.2 % (12.1-15.1); White Blood Count 24.97 10^3/uL (3.29-11.43)
[2023-04-09] MEDS: oxytocin 30 UNIT/500 ML BAG 600 UNIT IV (04:25)
[2023-04-09] MEDS: tranexamic acid 1,000 MG/100 ML PREMIX 330 MG IV (05:00)
[2023-04-09] MEDS: miSOPROStol 200 mcg Tablet 800 MCG PR (05:07)
--- NOTE | 2023-04-09 10:23 | ANE.PACU2 ---
Inpatient post-anesthesia follow up: Airway intact: Yes Vital signs: Temperature 98.3 F Pulse Rate 94 Respiratory Rate 16 Blood Pressure 101/64 Pulse Oximetry 98 Oxygen Delivery Me thod Room Air Oxygen Flow Rate Fraction of Inspir ed Oxygen Hydration adequate: Yes Nausea and vomiting: No Pain level: 2 Mental status: Baseline Additional Comments: Anes start 04/09/23219 Anes end 04/09/23 0410
[2023-04-09 16:51] LABS: Hematocrit 31.2 % (36-47); Mean Corpuscular HGB Conc 32.4 g/dL (30-55); Mean Corpuscular Hemoglobin 28.7 pg (27-33); Mean Corpuscular Volume 88.6 fl (85-98); Mean Platelet Volume 11.4 fL (7.4-10.4); Platelet Count 232 10^3/cmm (157-399); Red Blood Count 3.52 10^6/uL (3.85-5.65); Red Cell Distribution Width 13.2 % (12.1-15.1); White Blood Count 20.51 10^3/uL (3.29-11.43)
--- NOTE | 2023-04-09 17:30 | PM.DELIVERY ---
Delivery Note: Date of delivery: April 09, 2023 Pre-delivery diagnoses: 32-year-old 3 para 2-0-0-2 at 38 weeks estimated gestational age Post-delivery diagnoses: Status post spontaneous vaginal delivery Procedure: Spontaneous vaginal delivery Delivering Physician: Supa Linton Estimated blood loss (mL): 400 Delivery: DELIVERY: The patient progressed to complete without difficulty. She delivered a male with a weight of 8 pounds 8 ounces with Apgars of 8, 9. The baby was delivered from the BRE position. The baby's mouth and nose were suctioned at the site of the perineum. The baby was then completely delivered and placed on the mother's abdomen. The cord was then clamped and cut. There was no nuchal cord. There was no meconium. The placenta and 3 vessel cord were delivered intact shortly thereafter. The perineum and vaginal vault were carefully examined. No lacerations were noted. Both the mother and the baby were in stable condition. She did have several episodes after he was delivered when she had a moderate amount of blood loss. Initially she wanted to avoid Pitocin addition, but when she had her second episode of bleeding, Pitocin was added. Subsequent to that we also placed her on TXA, and 800 mcg of Cytotec. She responded well to those interventions and had appropriate bleeding thereafter. Post-Delivery Status: Good A&P Assessment and plan (1) 38 weeks gestation of : (2) Spontaneous vaginal delivery: I anticipate routine care. Coding Level of Care Code Acute Code for Chg Fwd Diagnoses 38 weeks gestation of Z3A.38 Spontaneous vaginal delivery O80
--- NOTE | 2023-04-09 17:35 | PM.OBGYDC ---
Discharge Providers CLINICAL FIELD SPECIALIST Date of Admission: 04/09/23 03:28 Date of Discharge: 04/13/23 Attending Provider at Admission: Supa Linton MD Attending Provider at Discharge: Supa Linton MD Primary Care Provider: Supa Linton MD Diagnoses at Discharge Discharge Diagnosis (1) 38 weeks gestation of : Status: Resolved (2) Spontaneous vaginal delivery: Status: Resolved Reason for Visit Reason for Visit: contractions Hospital Course Hospital Course The patient presented to the hospital in active labor. She had labored through most of the second stage of labor at home. She came in because she desired an epidural. She received her epidural. She progressed to complete and had an unremarkable delivery of a healthy appearing male . Her course was also unremarkable. Her bleeding was within normal limits. There were no concerns. Information Peripartum Data: Delivery Method: Vaginal Physical Exam Narrative: The patient is alert. She appears comfortable. Her heart has a regular rate and rhythm with no murmurs appreciated. Lungs are clear to auscultation bilaterally. Her fundus is firm and below the umbilicus. Discharge Data Studies Completed and Pending Pending at discharge Category Date Time Status Retype for Patiets ABO/Rh Routine Lab 04/09/23 04:00 Ordered Laboratory Results WBC 20.51 10^3/uL (3.29-11.43) H 04/09/23 16:42 RBC 3.52 10^6/uL (3.85-5.65) L 04/09/23 16:42 Hgb 10.10 g/dL (11.27-16.99) L 04/09/23 16:42 Hct 31.2 % (36-47) L 04/09/23 16:42 MCV 88.6 fl (85-98) 04/09/23 16:42 MCH 28.7 pg (27-33) 04/09/23 16:42 MCHC 32.4 g/dL (30-55) 04/09/23 16:42 RDW 13.2 % (12.1-15.1) 04/09/23 16:42 Plt Count 232 10^3/cmm (157-399) 04/09/23 16:42 MPV 11.4 fL (7.4-10.4) H 04/09/23 16:42 Neut % (Auto) 92.3 % 04/09/23 03:18 Lymph % (Auto) 3.6 % 04/09/23 03:18 [place] % (Auto) 2.9 % 04/09/23 03:18 Eos % (Auto) 0.0 % 04/09/23 03:18 Baso % (Auto) 0.2 % 04/09/23 03:18 Neut # (Auto) 23.06 10^3/uL (1.8-7.7) H 04/09/23 03:18 Lymph # (Auto) 0.9 10^3/uL (0.8-4.8) 04/09/23 03:18 [place] # (Auto) 0.7 10^3/uL (0.2-0.9) 04/09/23 03:18 Eos # (Auto) 0.0 10^3/uL (0.0-0.8) 04/09/23 03:18 Baso # (Auto) 0.0 10^3/uL (0.0-0.1) 04/09/23 03:18 Nucleated RBC % (auto) 0 % 04/09/23 03:18 Nucleated RBCs # 0.0 /100WBC 04/09/23 03:18 Blood Type O Positive 04/09/23 03:18 Rho(D) Type Rh positive 04/09/23 03:18 Antibody Screen Negative 04/09/23 03:18 Vitals Last Vital Signs Temp 98.0 F 04/09/23 12:15 Pulse 78 04/09/23 12:15 Resp 16 04/09/23 12:15 BP 108/72 04/09/23 12:15 Pulse Ox 98 04/09/23 12:15 O2 Del Method Room Air 04/09/23 12:15 Results Labs OB ([facility]): Obstetrics US 02/11/23 Blood Type O Positive 04/09/23 Antibody Screen Negative 04/09/23 Hct 31.2 % (36-47) L 04/09/23 Hgb 10.10 g/dL (11.27-16.99) L 04/09/23 Rho(D) Type Rh positive 04/09/23 Plt Count 232 10^3/cmm (157-399) 04/09/23 Micro Urine Specimen 02/08/22 Discharge Plan Discharge Patient Disposition: Home Condition: Stable Prescriptions: New ibuprofen 800 mg tablet 800 mg PO Q8H PRN (Reason: pain) Qty: 45 0RF Continued prenat.vits,trell,yps-sswu-vipqs Tablet 1 tab PO DAILY Discharge Orders: Discharge Order (Routine); Ordered 04/09/23 Ordered By: Supa Linton Discharge Diet: Usual diet Discharge Activity: Limit activity as instructed Patient Instructions: Depression (DC), Bleeding (DC), Preeclampsia and Eclampsia After Delivery (GEN), OB Discharge Report, OB Food/Drug Interaction Guide, OB Care at Home, Opioid Safety, OB Vaginal Deliveries Discharge Attestations CLINICAL FIELD SPECIALIST Time Spent in Discharge Care*: less than 30 min Coding Level of Care Code Acute Code for Chg Fwd Diagnoses 38 weeks gestation of Z3A.38 Spontaneous vaginal delivery O80
== END 2023-04-09 18:06 | disposition home or self-care (01) | DRG 807 ==
LOC: OPOB 08:04 → OBGYN 08:04
PROVIDERS: Admitting Provider Family Medicine; PCP Family Medicine; Visit Provider Family Medicine
DX: O80 Encounter for full-term uncomplicated delivery (principal); Z37.0 Single live birth; Z3A.38 38 weeks gestation of pregnancy
CPT/HCPCS: 36415; 59025; 59409; 85025; 85027; 86850; 86900; 99211; J2590; J2795; J3010; J7121